=== PATIENT | male | born 1960 | race Two or more races ===

== ENCOUNTER 2023-11-09 09:59 | Emergency (ER) | payer OTHER ==
[~2023-11-09] VITALS: Ht 175.3 cm; Wt 91.6 kg
[2023-11-09] MEDS ORDERED: PROVENTIL S2 MG/5 ML (10:27)
[2023-11-09 11:47] LABS: HEMATOCRIT 39.8 % (39.0-48.0); MEAN CORPUSCULAR HEMOGLOBIN 20.9 pg (27.00-32.0); MEAN CORPUSCULAR HGB CONC 32.5 g/dl (32.0-36.0); PLATELET COUNT 174 K/uL (150-450); RED CELL DISTRIBUTION WIDTH 15.3 % (11.5-14.5)
[2023-11-09 11:49] LABS: MEAN CELL VOLUME 64.2 fL (80.0-100.00)
[2023-11-09 11:59] LABS: ABG PH 7.458 (7.35-7.45); ABG PO2 70.5 mmHg (80-100); ABG pCO2 30.9 mmHg (35-45); BASE EXCESS -1.4 mmol/l; BICARBONATE 21.4 mmol/l (23-25); SaO2 94.8 %; Tco2 22.3 mmol/l
[2023-11-09 12:00] LABS: allen test SATISFACTORY; o2 21 %; puncture site RADIAL RIGHT
[2023-11-09 12:02] LABS: CREATININE SERUM 0.72 mg/dL (0.70-1.30); GFR 110.61; POTASSIUM 4.44 mEq/L (3.5-5.1)
== END 2023-11-09 16:07 | disposition home or self-care (01) ==
LOC: ER 10:00
PROVIDERS: Emergency Medicine
DX: J45.901 Unspecified asthma with (acute) exacerbation (principal); Z20.822 Contact with and (suspected) exposure to COVID-19